=== PATIENT | female | born 1955 | race Caucasian/White ===

== ENCOUNTER 2016-12-04 21:32 | Emergency (ER) | payer MEDICAID ==
[~2016-12-04] VITALS: Ht 157.5 cm; Wt 77.0 kg
[2016-12-05] MEDS ORDERED: SODIUM CHLORIDE 0.9% 1,000 ML IV ONE (00:59)
[2016-12-05] MEDS ORDERED: ONDANSETRON HCL 4MG/2ML VIAL IV STA (00:59)
[2016-12-05] MEDS ORDERED: MORPHINE SULFATE 4 MG/ML CPJ (NOT FOR IM USE) IV STA (00:59)
[2016-12-05] MEDS ORDERED: HYDRALAZINE 20MG/ML VIAL IV ONE (01:15)
[2016-12-05 01:32] LABS: BASOPHILS % 1.3 % (0.0-2.0); EOSINOPHILS % 1.8 % (0.0-5.0); HEMATOCRIT. 36.3 % (36.0-48.0); HEMOGLOBIN. 11.7 g/dL (12.0-16.0); LYMPHOCYTES % 21.7 % (20.0-50.0); MEAN CORPUSCULAR VOLUME 80.9 fL (81.0-99.0); MEAN PLATELET VOLUME 7.5 fl (7.4-10.4); MONOCYTES % 7.7 % (2.0-8.0); NEUTROPHILS % 67.5 % (40.0-76.0); PLATELET 389 x1000/uL (130-400); RED BLOOD CELL COUNT 4.49 mill/uL (4.2-5.4)
[2016-12-05 01:38] LABS: PROTHROMBIN TIME 10.4 sec
[2016-12-05 01:51] LABS: AMMONIA 38 uMol/L (<32)
[2016-12-05 01:54] LABS: CARBON DIOXIDE 26 mEq/L (21-32); CHLORIDE 106 mEq/L (98-107); CREATINE KINASE 86 IU/L (26-192); ETHANOL BLOOD < 10 mg/dL; TROPONIN I < 0.02 ng/mL (0.00-0.04)
[2016-12-05 02:48] VITALS: BP 126/86
[2017-01-29] MEDS ORDERED: LISI10TA5 PO (16:35)
[2017-01-29] MEDS ORDERED: AMLO2.5T45 PO (16:35)
[2017-01-30] MEDS ORDERED: HYDR25TA PO (10:06)
[2017-01-30] MEDS ORDERED: METF10002 PO (10:06)
[2017-01-30] MEDS ORDERED: SERT25TA74 PO (10:06)
[2017-01-30] MEDS ORDERED: PANT40TA4 PO (10:07)
[2017-01-30] MEDS ORDERED: RANI300T4 PO (10:08)
[2017-01-31] MEDS ORDERED: ASPI-1158 PO (15:11)
[2017-01-31] MEDS ORDERED: HYDR25TA PO (15:11)
[2017-01-31] MEDS ORDERED: METO25TA6 PO (15:11)
[2017-01-31] MEDS ORDERED: LIP40 PO (15:11)
[2017-01-31] MEDS ORDERED: LISI10TA5 PO (15:11)
== END 2016-12-05 02:49 | disposition home or self-care (01) ==
LOC: ER 21:42
DX: I16.0 Hypertensive urgency (principal); R40.4 Transient alteration of awareness; I69.351 Hemiplegia and hemiparesis following cerebral infarction affecting right dominant side; S73.101A Unspecified sprain of right hip, initial encounter; X58.XXXA Exposure to other specified factors, initial encounter; Y93.9 Activity, unspecified; Y92.9 Unspecified place or not applicable; G89.4 Chronic pain syndrome; K59.00 Constipation, unspecified; G93.89 Other specified disorders of brain; J32.9 Chronic sinusitis, unspecified; M85.80 Other specified disorders of bone density and structure, unspecified site
CPT/HCPCS: 36415; 70450; 71010; 73502; 80053; 82140; 82550; 84443; 84484; 85025; 85610; 93005; 96361; 96374; 96375; 99285; G0482; J2270; J2405; Z7610; J7030

== ENCOUNTER 2018-11-25 22:27 | Inpatient (IN) | payer MEDICAID ==
[~2018-11-25] VITALS: Ht 162.6 cm; Wt 84.8 kg
[~2018-11-25 22:27] MED LIST: AMLO2.5T45 PO; ASPI-1158 PO; HYDR25TA PO; LIP40 PO; LISI10TA5 PO; METF-416 PO; METO25TA6 PO; PANT40TA4 PO; SERT25TA74 PO
[2018-11-25 23:14] LABS: BASOPHILS % 0.7 % (0.0-2.0); EOSINOPHILS % 1.8 % (0.0-5.0); HEMATOCRIT. 42.5 % (36.0-48.0); HEMOGLOBIN. 14.5 g/dL (12.0-16.0); LYMPHOCYTES % 20.6 % (20.0-50.0); MEAN CORPUSCULAR HEMOGLOBIN 32.4 pg (28.0-32.0); MEAN CORPUSCULAR VOLUME 94.9 fL (81.0-99.0); MEAN PLATELET VOLUME 7.5 fl (7.4-10.4); MONOCYTES % 8.8 % (2.0-8.0); NEUTROPHILS % 68.1 % (40.0-76.0); PLATELET 335 x1000/uL (130-400); RED BLOOD CELL COUNT 4.48 mill/uL (4.2-5.4); RED CELL DISTRIBUTION WIDTH 13.8 % (11.6-14.6)
[2018-11-25 23:19] LABS: CHLORIDE 101 mEq/L (98-107)
[2018-11-25 23:24] LABS: ETHANOL BLOOD < 10 mg/dL; INR 0.9; PROTHROMBIN TIME 9.5 sec (9.6-11.0)
[2018-11-25 23:27] LABS: LDL CHOLESTEROL 209 mg/dL (5-100)
[2018-11-25] MEDS ORDERED: IOHEXOL-350 100 ML BOTTLE ONE (23:41)
[2018-11-26 00:35] LABS: CLARITY URINE CLEAR (CLEAR); COLOR URINE YELLOW (YELLOW); KETONES URINE NEGATIVE (NEGATIVE); LEUKOCYTE ESTERASE URINE TRACE (NEGATIVE); NITRITE URINE NEGATIVE (NEGATIVE); OCCULT BLOOD URINE NEGATIVE (NEGATIVE); PROTEIN URINE NEGATIVE (NEGATIVE); SPECIFIC GRAVITY URINE 1.025 (1.005-1.030); UROBILINOGEN URINE 0.2 E.U./dL (0.2-1.0)
[2018-11-26 00:47] LABS: *AMPHETAMINES SCREEN URINE NEGATIVE (NEGATIVE); *BARBITURATES SCREEN URINE NEGATIVE (NEGATIVE); *BENZODIAZEPINES SCREEN URINE NEGATIVE (NEGATIVE)
[2018-11-26 00:48] LABS: *COCAINE SCREEN URINE NEGATIVE (NEGATIVE); CANNABINOID URINE SCREEN NEGATIVE (NEGATIVE); METHADONE URINE SCREEN NEGATIVE (NEGATIVE); OPIATES URINE SCREEN NEGATIVE (NEGATIVE); PHENCYCLIDINE URINE SCREEN NEGATIVE (NEGATIVE)
[2018-11-26] MEDS ORDERED: ONDANSETRON HCL 4MG/2ML INJ IV STA (01:30)
[2018-11-26] MEDS ORDERED: MORPHINE SULFATE 4 MG/ML CPJ (NOT FOR IM USE) IV STA (01:30)
[2018-11-26 02:50] VITALS: BP 154/88
[2018-11-26 03:30] VITALS: BP 154/88
[2018-11-26] MEDS ORDERED: DEXTROSE 50% WATER 50ML SYRINGE IV PRN (04:30)
[2018-11-26] MEDS: HYDROCODONE/ACETAMINOPHEN 5/325MG TABLET PO PRN ×2 (06:22→17:29)
[2018-11-26] MEDS: INSULIN LISPRO 100 UNITS/ML SUBCUT SCH ×4 (06:26→21:00)
[2018-11-26] MEDS: BLOOD SUGAR DIAGNOSTIC STRIP TEST SCH ×4 (06:26→21:00)
[2018-11-26 08:00] VITALS: BP 101/72
[2018-11-26] MEDS ORDERED: PNEUMOCOCCAL 23-VAL P-SAC VAC 0.5 ML IM ONE (08:00)
[2018-11-26] MEDS: HYDROCHLOROTHIAZIDE 25MG TABLET PO SCH (09:00)
[2018-11-26] MEDS: LISINOPRIL 10MG TABLET PO SCH (09:00)
[2018-11-26] MEDS: SERTRALINE HCL 50MG TABLET PO SCH (09:00)
[2018-11-26] MEDS: ASPIRIN 81MG TABLET PO SCH (09:00)
[2018-11-26] MEDS: METFORMIN HCL 500MG TABLET PO SCH ×2 (09:01→17:27)
[2018-11-26] MEDS: AMLODIPINE 10MG TABLET PO SCH (09:01)
[2018-11-26] MEDS: CLOPIDOGREL 75MG TABLET PO SCH (09:06)
[2018-11-26] MEDS: ENOXAPARIN 40MG/0.4ML SYR SUBCUT SCH (09:06)
[2018-11-26 11:09] LABS: T4 FREE 1.47 ng/dL (0.76-1.46)
[2018-11-26 11:44] LABS: VITAMIN B12 SERUM > 2000.0 pg/mL (211-911)
[2018-11-26 12:00] VITALS: BP 104/61
[2018-11-26] MEDS ORDERED: OMEP20CA5 MT (13:29)
[2018-11-26] MEDS ORDERED: LISI-649 MT (13:29)
[2018-11-26] MEDS ORDERED: DOCU-150 MT (13:36)
[2018-11-26] MEDS ORDERED: ONDA4TAB11 PO (13:38)
[2018-11-26 16:00] VITALS: BP 100/50
[2018-11-26 20:00] VITALS: BP 107/65
[2018-11-26] MEDS: ATORVASTATIN CALCIUM 40MG TABLET PO SCH (22:41)
[2018-11-27] VITALS: BP 103/58
[2018-11-27 04:00] VITALS: BP 106/61
[2018-11-27 06:13] LABS: BASOPHILS % 0.8 % (0.0-2.0); EOSINOPHILS % 2.1 % (0.0-5.0); HEMATOCRIT. 40.3 % (36.0-48.0); LYMPHOCYTES % 17.3 % (20.0-50.0); MEAN CORPUSCULAR HEMOGLOBIN 32.9 pg (28.0-32.0); MEAN CORPUSCULAR VOLUME 94.6 fL (81.0-99.0); MEAN PLATELET VOLUME 7.9 fl (7.4-10.4); MONOCYTES % 8.9 % (2.0-8.0); NEUTROPHILS % 70.9 % (40.0-76.0); PLATELET 371 x1000/uL (130-400); RED BLOOD CELL COUNT 4.26 mill/uL (4.2-5.4); RED CELL DISTRIBUTION WIDTH 13.8 % (11.6-14.6)
[2018-11-27 06:14] LABS: CHLORIDE 99 mEq/L (98-107)
[2018-11-27] MEDS: INSULIN LISPRO 100 UNITS/ML SUBCUT SCH ×4 (07:40→21:00)
[2018-11-27] MEDS: BLOOD SUGAR DIAGNOSTIC STRIP TEST SCH ×4 (07:47→21:19)
[2018-11-27] MEDS: METFORMIN HCL 500MG TABLET PO SCH ×2 (09:34→18:18)
[2018-11-27] MEDS: ENOXAPARIN 40MG/0.4ML SYR SUBCUT SCH (09:34)
[2018-11-27] MEDS: SERTRALINE HCL 50MG TABLET PO SCH (09:34)
[2018-11-27] MEDS: CLOPIDOGREL 75MG TABLET PO SCH (09:35)
[2018-11-27] MEDS: ASPIRIN 81MG TABLET PO SCH (09:35)
[2018-11-27] MEDS: LISINOPRIL 10MG TABLET PO SCH (09:41)
[2018-11-27] MEDS: AMLODIPINE 10MG TABLET PO SCH (09:42)
[2018-11-27] MEDS: HYDROCODONE/ACETAMINOPHEN 5/325MG TABLET PO PRN (09:45)
[2018-11-27] MEDS: HYDROCHLOROTHIAZIDE 25MG TABLET PO SCH (09:52)
[2018-11-27 12:00] VITALS: BP 116/72
[2018-11-27] MEDS: GABAPENTIN 100MG CAPSULE PO SCH ×2 (13:52→20:55)
[2018-11-27] MEDS: TIZANIDINE HCL 2MG TABLET PO SCH ×2 (13:52→20:55)
[2018-11-27 16:00] VITALS: BP 100/50
[2018-11-27] MEDS: DOCUSATE SODIUM 100MG CAPSULE PO SCH (18:18)
[2018-11-27] MEDS: LACTULOSE 20G/30ML UDC PO SCH ×3 (18:18→20:55)
[2018-11-27 20:00] VITALS: BP 122/65
[2018-11-27] MEDS: ATORVASTATIN CALCIUM 40MG TABLET PO SCH (20:55)
[2018-11-27] MEDS ORDERED: POLYETHYLENE GLYCOL 3350 (17GM) 1 DOSE PACK PO SCH (21:00)
[2018-11-28] VITALS: BP 101/54
[2018-11-28 04:00] VITALS: BP 101/57
[2018-11-28] MEDS: TIZANIDINE HCL 2MG TABLET PO SCH ×2 (05:10→12:37)
[2018-11-28] MEDS: GABAPENTIN 100MG CAPSULE PO SCH ×2 (05:10→12:37)
[2018-11-28] MEDS: BLOOD SUGAR DIAGNOSTIC STRIP TEST SCH ×3 (06:17→18:02)
[2018-11-28] MEDS: INSULIN LISPRO 100 UNITS/ML SUBCUT SCH ×4 (06:23→17:40)
[2018-11-28 06:32] LABS: BASOPHILS % 0.6 % (0.0-2.0); EOSINOPHILS % 3.1 % (0.0-5.0); HEMATOCRIT. 41.1 % (36.0-48.0); HEMOGLOBIN. 14.2 g/dL (12.0-16.0); LYMPHOCYTES % 20.6 % (20.0-50.0); MEAN CORPUSCULAR HEMOGLOBIN 32.7 pg (28.0-32.0); MEAN CORPUSCULAR VOLUME 94.8 fL (81.0-99.0); MEAN PLATELET VOLUME 7.8 fl (7.4-10.4); MONOCYTES % 10.2 % (2.0-8.0); NEUTROPHILS % 65.5 % (40.0-76.0); PLATELET 352 x1000/uL (130-400); RED BLOOD CELL COUNT 4.34 mill/uL (4.2-5.4); RED CELL DISTRIBUTION WIDTH 13.9 % (11.6-14.6)
[2018-11-28 07:19] LABS: CHLORIDE 100 mEq/L (98-107)
[2018-11-28] MEDS: AMLODIPINE 10MG TABLET PO SCH (08:10)
[2018-11-28] MEDS: LACTULOSE 20G/30ML UDC PO SCH ×2 (08:29→12:37)
[2018-11-28] MEDS: ENOXAPARIN 40MG/0.4ML SYR SUBCUT SCH (08:30)
[2018-11-28] MEDS: LISINOPRIL 10MG TABLET PO SCH (08:30)
[2018-11-28] MEDS: CLOPIDOGREL 75MG TABLET PO SCH (08:30)
[2018-11-28] MEDS: METFORMIN HCL 500MG TABLET PO SCH ×2 (08:30→16:34)
[2018-11-28] MEDS: DOCUSATE SODIUM 100MG CAPSULE PO SCH ×2 (08:30→16:34)
[2018-11-28] MEDS: SERTRALINE HCL 50MG TABLET PO SCH (08:30)
[2018-11-28] MEDS: ASPIRIN 81MG TABLET PO SCH (08:30)
[2018-11-28] MEDS: HYDROCHLOROTHIAZIDE 25MG TABLET PO SCH (08:56)
[2018-11-28 12:01] VITALS: BP 106/73
[2018-11-28] MEDS ORDERED: POTASSIUM CHLORIDE 20MEQ TABLET SR PO NR (14:30)
[2018-11-28 15:42] VITALS: BP 112/85
[2018-11-28 15:54] VITALS: BP 106/69
[2018-11-28 20:00] VITALS: BP 113/63
== END 2018-11-28 21:00 | disposition home health service (06) | DRG 48 ==
LOC: ER 22:57 → EDBEDREQSVC 11-26 00:20 → EDBEDREQ 11-26 00:20 → EDBEDREQDT 11-26 00:20 → EDBEDREQTM 11-26 00:20 → 8WST 11-26 01:08 → ENRESERV 11-26 02:09
PROVIDERS: ADMIT Internal Medicine; ATTEND Internal Medicine
DX: G90.8 Other disorders of autonomic nervous system (principal); I71.2 Thoracic aortic aneurysm, without rupture; I69.351 Hemiplegia and hemiparesis following cerebral infarction affecting right dominant side; M48.02 Spinal stenosis, cervical region; R13.10 Dysphagia, unspecified; M50.20 Other cervical disc displacement, unspecified cervical region; R47.1 Dysarthria and anarthria; I10 Essential (primary) hypertension; F32.9 Major depressive disorder, single episode, unspecified; E78.00 Pure hypercholesterolemia, unspecified; E11.9 Type 2 diabetes mellitus without complications; E66.9 Obesity, unspecified; E78.5 Hyperlipidemia, unspecified; J44.9 Chronic obstructive pulmonary disease, unspecified; M16.10 Unilateral primary osteoarthritis, unspecified hip; R29.810 Facial weakness; Z82.49 Family history of ischemic heart disease and other diseases of the circulatory system; Z83.3 Family history of diabetes mellitus; Z90.49 Acquired absence of other specified parts of digestive tract; Z90.710 Acquired absence of both cervix and uterus; Z91.19 Patient's noncompliance with other medical treatment and regimen; Z68.32 Body mass index [BMI] 32.0-32.9, adult; Z79.84 Long term (current) use of oral hypoglycemic drugs; Z79.899 Other long term (current) drug therapy; Z91.14 Patient's other noncompliance with medication regimen
CPT/HCPCS: 36415; 70496; 70551; 71045; 72141; 72148; 73522; 73560; 73600; 73610; 73630; 80048; 80061; 80305; 80320; 82607; 82746; 82962; 83036; 83721; 84439; 84443; 84481; 84484; 90732; 92523; 92610; 93005; 93306; 93880; 93970; 96374; 96375; 97162; 97166; 97530; 99291; J1650; J1815; J2270; J2405; Q9967; G0480